=== PATIENT | male | born 1945 | race Caucasian/White ===

== ENCOUNTER 2018-10-10 14:55 | Emergency (ER) | payer MEDICARE, BC ==
--- NOTE | 2018-10-10 15:32 | EDM.PDOC ---
ED HPI GENERAL MEDICAL PROBLEM - General Chief Complaint: General Stated Complaint: Bilateral Leg Weakness, R Arm Shaking Time Seen by Provider: 10/10/18 15:08 Source of Information: Reports: Patient, Other ([place] [facility] staff) History Limitations: Reports: Other (mild cognitive impairment) - History of Present Illness INITIAL COMMENTS - FREE TEXT/NARRATIVE: Patient sent to ER for evaluation after [facility] staff noted that he has appeared to show on and off signs of gait change...more specifically right leg heaviness sensation/lagging. Also right arm/hand shaking. Staff say they noted it earlier this morning and again later at 1350. Patient says that he has had the issues for at least several weeks and denies acute changes. Staff also note that patient told them that he was not thinking as clearly today compared to yesterday. Patient denies this problem here in the ER. He admits that he has to be careful whenever he starts to ambulate and it takes a bit to get going and he has to be careful or will lose balance. Denies new numbness/tingling/focal weakness sensation when asked in the ER. No reported med changes or other recent health changes. No changes in speech/vision. - Related Data Allergies Allergy/AdvReac Type Severity Reaction Status Date / Time ibuprofen Allergy Other Verified 10/26/14 03:28 simvastatin Allergy Other Verified 08/30/16 12:23 [id number] Reductase Allergy Other Verified 10/26/14 03:27 Inhibitor nitroglycerin AdvReac Bradycardia Verified 10/26/14 11:29 [From Nitrostat] Home Meds: Home Meds Acetaminophen 650 mg PO Q4HR PRN MDD 3000 mg 10/26/14 [History] Aspirin [Ecotrin] 325 mg PO DAILY 10/26/14 [History] Cholecalciferol (Vitamin D3) [Vitamin D3] 2,000 units PO DAILY 10/26/14 [History ] Levothyroxine 50 mcg PO DAILY 10/26/14 [History] Donepezil [Aricept] 5 mg PO DAILY 08/30/16 [History] Loratadine 10 mg PO DAILY 08/30/16 [History] Metoprolol Succinate [Toprol XL] 50 mg PO DAILY #30 tab.er 08/30/16 [Rx] Phenylephrine HCl [Sudogest PE] 10 mg PO Q4HR PRN MDD 6 tabs 08/30/16 [History] Sennosides/Docusate Sodium [Sennosides-Docusate Sodium] 2 tab PO DAILY 08/30/16 [History] Dextran 70/Hypromellose [Artificial Tears] 1 drop EYEBOTH BID PRN 10/10/18 [ History] Docusate Sodium [Colace] 100 - 200 mg PO DAILY 10/10/18 [History] Melatonin 3 mg PO DAILY PRN 10/10/18 [History] Menthol/Methyl Salicylate [Analgesic [place]] 1 applic TOP TID PRN 10/10/18 [ History] Past Medical History HEENT History: Reports: Allergic Rhinitis, Hard of Hearing, Impaired Vision, Sinusitis, Other (See Below) Other HEENT History: Chronic allergic rhinitis and sinusitis, severe bilateral presbycusis with the patient not wearing hearing aids, glasses, chronic tinnitus , eustachian tube dysfunction, dry eye syndrome Cardiovascular History: Reports: High Cholesterol, PVD, Other (See Below) Other Cardiovascular History: Varicose veins Respiratory History: Reports: None Gastrointestinal History: Reports: Chronic Constipation Genitourinary History: Reports: BPH Musculoskeletal History: Reports: Arthritis, Osteoarthritis Neurological History: Reports: Alzheimers Disease Psychiatric History: Reports: Alzheimers Disease, Dementia, Other (See Below) Other Psychiatric History: insomnia Endocrine/Metabolic History: Reports: Hypothyroidism, Vitamin D Deficiency Dermatologic History: Reports: Other (See Below) Other Dermatologic History: Actinic keratosis Social & Family History - Living Situation & Occupation Living situation: Reports: Extended Care Facility ED ROS GENERAL - Review of Systems Review Of Systems: See Below Constitutional: Reports: No Symptoms HEENT: Reports: No Symptoms Respiratory: Reports: No Symptoms Endocrine: Reports: No Symptoms GI/Abdominal: Reports: No Symptoms : Reports: No Symptoms Musculoskeletal: Reports: Other (right hand shaking, right leg heaviness/lag per HPI) Skin: Reports: No Symptoms Neurological: Reports: Confusion (has dementia, denies any acute worsening of mentation when asked. ), Tremors. Denies: Dizziness, Headache, Numbness, Paresthesia, Trouble Speaking, Weakness, Change in Speech Psychiatric: Reports: No Symptoms Hematologic/Lymphatic: Reports: No Symptoms ED EXAM, GENERAL - Physical Exam Exam: See Below Exam Limited By: No Limitations General Appearance: Alert, WD/WN, No Apparent Distress Eye Exam: Bilateral Eye: EOMI, PERRL Ears: Normal External Exam Nose: No: Nasal Deformity, Nasal Swelling, Nasal Drainage Throat/Mouth: Normal Lips, Normal Voice, No Airway Compromise Head: Atraumatic, Normocephalic Neck: Normal Inspection, Supple, Non-Tender, Full Range of Motion Respiratory/Chest: No Respiratory Distress, Lungs Clear, Normal Breath Sounds, No Accessory Muscle Use, Chest Non-Tender Cardiovascular: Normal Peripheral Pulses, Regular Rate, Rhythm, No Murmur GI/Abdominal: Soft, Non-Tender (Male) Exam: Deferred Rectal (Males) Exam: Deferred Back Exam: Normal Inspection Extremities: Non-Tender, No Pedal Edema, Normal Capillary Refill. No: Juancarlos's Sign, Leg Pain Neurological: Alert, No Motor/Sensory Deficits, Other (Equal tone/strength bilaterally. Normal reflexes. No cogwheeling noted. Slight shuffle noted when patient stood and started to ambulate. Once ambulating he appeared to do well. No tremor noted in limbs. ) Psychiatric: Normal Affect, Normal Mood Skin Exam: Warm, Dry, Intact Course - Vital Signs Last Recorded V/S: Last Vital Signs Temp 36.4 C 10/10/18 15:00 Pulse 67 10/10/18 15:00 Resp 16 10/10/18 15:00 BP 155/90 H 10/10/18 15:00 Pulse Ox 97 10/10/18 15:00 - Orders/Labs/Meds Orders: Active Orders 24 hr Category Date Time Status Head wo Cont [CT] Stat Exams 10/10/18 15:13 Ordered UA W/MICROSCOPIC [URIN] Stat Lab 10/10/18 15:08 Stop Req Labs: Laboratory Tests 10/10/18 10/10/18 Range/Units 15:16 15:16 WBC 6.3 (4.0-10.2) K/uL RBC 4.60 (4.33-5.41) M/uL Hgb 15.1 (13.1-16.8) g/dL Hct 42.7 (39.0-49.0) % MCV 92.8 (84.0-98.0) fL MCH 32.8 (28.2-33.3) pg MCHC 35.4 (31.7-36.0) g/dL RDW 12.3 (11.2-14.1) % Plt Count 200 (150-350) K/uL Neut % (Auto) 71.6 (45.0-80.0) % Lymph % (Auto) 15.3 (10.0-50.0) % [place] % (Auto) 10.7 (2.0-14.0) % Eos % (Auto) 1.9 (0.0-5.0) % Baso % (Auto) 0.5 (0.0-2.0) % Neut # (Auto) 4.50 (1.40-7.00) K/uL Lymph # (Auto) 0.96 (0.50-3.50) K/uL [place] # (Auto) 0.67 (0.00-1.00) K/uL Eos # (Auto) 0.12 (0.00-0.50) K/uL Baso # (Auto) 0.03 (0.00-0.20) K/uL Sodium 138 (136-145) mmol/L Potassium 4.0 (3.5-5.1) mmol/L Chloride 100 (98-107) mmol/L Carbon Dioxide 28.3 (21.0-32.0) mmol/L BUN 12 (7-18) mg/dL Creatinine 0.78 (0.51-1.17) mg/dL Est Cr Clr Drug Dosing 77.68 mL/min Estimated GFR (MDRD) > 60 mL/min Glucose 124 H (74-106) mg/dL Calcium 8.8 (8.5-10.1) mg/dL Magnesium 1.8 (1.8-2.4) mg/dL Total Bilirubin 0.5 (0.2-1.0) mg/dL AST 16 (15-37) U/L ALT 28 (12-78) U/L Alkaline Phosphatase 72 (46-116) IU/L Total Protein 6.5 (6.4-8.2) g/dL Albumin 3.8 (3.4-5.0) g/dL TSH, Ultra Sensitive 1.430 (0.358-3.740) mIU/mL - Radiology Interpretation CT Results Date: 10/10/18 CT Results Time: 16:00 (No acute changes noted on head CT suggestive of acute ischemia/bleed/mass) - Re-Assessments/Exams Free Text/Narrative Re-Assessment/Exam: 10/10/18 15:[address] ordered. Patient however did not meet criteria for stroke code given prolonged nature of complaint and lack of focal changes noted on initial exam in ER. Baseline labs ordered. 10/10/18 16:[address] of head unremarkable for acute changes. Has some volume loss and changes reflective of chronic small vessel ischemic disease. Patient comfortable in ER during visit. No complaints. No changes observed during stay. Plan is to discharge patient back to [place] home. UA canceled as patient unable to provide specimen. Denies UTI complaints. Given the intermittent tremors reported, more pronounced on the one side, as well as difficulty "getting going" while ambulating, consider developing movement disorder such as Parkinson's. To follow up with primary provider for re-evaluation. Further testing can be scheduled at that time as needed. Departure - Departure Time of Disposition: 16:10 Disposition: DC/Tfer to SNF 03 Condition: Good Clinical Impression: Occasional tremors - Discharge Information *PRESCRIPTION DRUG MONITORING PROGRAM REVIEWED*: Not Applicable *COPY OF PRESCRIPTION DRUG MONITORING REPORT IN PATIENT GAGAN: Not Applicable Referrals: Josephine Alan PA [Primary Care Provider] - Forms: ED Department Discharge Additional Instructions: Continue current plan. Follow up with clinic. May need neuro evaluation for possible movement disorder such as Parkinsons. Observe for changes and follow up otherwise as needed if new issues arise. - My Orders Last 24 Hours: My Active Orders 10/10/18 15:08 UA W/MICROSCOPIC [URIN] Stat 10/10/18 15:13 Head wo Cont [CT] Stat - Assessment/Plan Last 24 Hours: My Active Orders 10/10/18 15:08 UA W/MICROSCOPIC [URIN] Stat 10/10/18 15:13 Head wo Cont [CT] Stat
[2018-10-10 15:51] LABS: CHLORIDE,CL 100 mmol/L (98-107); SODIUM,NA 138 mmol/L (136-145)
[2018-10-10 16:34] VITALS: BP 138/86
== END 2018-10-10 16:20 ==
LOC: LL.ED 14:55
DX: R25.1 Tremor, unspecified (principal); E78.00 Pure hypercholesterolemia, unspecified; E03.9 Hypothyroidism, unspecified; Z79.82 Long term (current) use of aspirin; Z88.8 Allergy status to other drugs, medicaments and biological substances; Z79.899 Other long term (current) drug therapy
CPT/HCPCS: 36415; 70450; 80053; 83735; 84443; 85025; 99283; 99285

== ENCOUNTER 2018-12-13 10:20 | Emergency (ER) | payer MEDICARE, BC ==
[2018-12-13] MEDS ORDERED: Sodium Chloride 0.9% 10 ML Syringe FLUSH PRN (10:29)
[2018-12-13 10:54] LABS: CHLORIDE,CL 103 mmol/L (98-107); SODIUM,NA 141 mmol/L (136-145)
--- NOTE | 2018-12-13 11:13 | EDM.PDOC ---
ED HPI GENERAL MEDICAL PROBLEM - General Chief Complaint: Cardiovascular Problem Stated Complaint: chest pain Time Seen by Provider: 12/13/18 10:25 Source of Information: Reports: Patient History Limitations: Reports: No Limitations - History of Present Illness INITIAL COMMENTS - FREE TEXT/NARRATIVE: Pt states he had substernal chest pain this morning Began about an hour before presenting to ER No fever No cough No trauma Pain does not radiate Was not related to eating etc Has had similar pain in the past No nrew medications Pain was 5/10 at worst Has resolved at this time Onset: Today, Gradual Duration: Hour(s):, Improving Location: Reports: Chest Quality: Reports: Ache Severity: Moderate Improves with: Reports: None Worsens with: Reports: None Associated Symptoms: Reports: No Other Symptoms Sternum Pain Score (Numeric/FACES): 0 - Related Data Allergies Allergy/AdvReac Type Severity Reaction Status Date / Time ibuprofen Allergy Other Verified 12/13/18 10:47 simvastatin Allergy Other Verified 12/13/18 10:47 [id number] Reductase Allergy Other Verified 12/13/18 10:47 Inhibitor nitroglycerin AdvReac Bradycardia Verified 12/13/18 10:47 [From Nitrostat] Home Meds: Home Meds Aspirin [Ecotrin] 325 mg PO DAILY 10/26/14 [History] Cholecalciferol (Vitamin D3) [Vitamin D3] 2,000 units PO DAILY 10/26/14 [History ] Levothyroxine 50 mcg PO DAILY 10/26/14 [History] Donepezil [Aricept] 5 mg PO DAILY 08/30/16 [History] Loratadine 10 mg PO DAILY 08/30/16 [History] Metoprolol Succinate [Toprol XL] 50 mg PO DAILY #30 tab.er 08/30/16 [Rx] Phenylephrine HCl [Sudogest PE] 10 mg PO Q4HR PRN MDD 6 tabs 08/30/16 [History] Sennosides/Docusate Sodium [Sennosides-Docusate Sodium] 2 tab PO DAILY 08/30/16 [History] Dextran 70/Hypromellose [Artificial Tears] 1 drop EYEBOTH BID PRN 10/10/18 [ History] Docusate Sodium [Colace] 1 - 2 cap PO DAILY 10/10/18 [History] Melatonin 3 mg PO DAILY PRN 10/10/18 [History] Menthol/Methyl Salicylate [Analgesic [place]] 1 applic TOP TID PRN 10/10/18 [ History] Past Medical History HEENT History: Reports: Allergic Rhinitis, Hard of Hearing, Impaired Vision, Sinusitis, Other (See Below) Other HEENT History: Chronic allergic rhinitis and sinusitis, severe bilateral presbycusis with the patient not wearing hearing aids, glasses, chronic tinnitus , eustachian tube dysfunction, dry eye syndrome Cardiovascular History: Reports: High Cholesterol, PVD, Other (See Below) Other Cardiovascular History: Varicose veins Respiratory History: Reports: None Gastrointestinal History: Reports: Chronic Constipation Genitourinary History: Reports: BPH Musculoskeletal History: Reports: Arthritis, Osteoarthritis Neurological History: Reports: Alzheimers Disease Psychiatric History: Reports: Alzheimers Disease, Dementia, Other (See Below) Other Psychiatric History: insomnia Endocrine/Metabolic History: Reports: Hypothyroidism, Vitamin D Deficiency Dermatologic History: Reports: Other (See Below) Other Dermatologic History: Actinic keratosis Social & Family History - Caffeine Use Caffeine Use: Reports: Coffee, Soda, Tea - Living Situation & Occupation Living situation: Reports: Extended Care Facility ED ROS GENERAL - Review of Systems Review Of Systems: See Below Constitutional: Reports: No Symptoms HEENT: Reports: No Symptoms Respiratory: Reports: No Symptoms Cardiovascular: Reports: Chest Pain GI/Abdominal: Reports: No Symptoms : Reports: No Symptoms Musculoskeletal: Reports: No Symptoms ED EXAM, GENERAL - Physical Exam Exam: See Below Exam Limited By: No Limitations General Appearance: No Apparent Distress Throat/Mouth: Normal Oropharynx Neck: Supple Respiratory/Chest: Lungs Clear Cardiovascular: Regular Rate, Rhythm GI/Abdominal: Soft, Non-Tender Extremities: Normal Inspection Course - Vital Signs Last Recorded V/S: Last Vital Signs Temp 36.8 C 12/13/18 10:22 Pulse 57 L 12/13/18 10:40 Resp 17 12/13/18 10:40 BP 140/90 12/13/18 10:40 Pulse Ox 96 12/13/18 10:40 - Orders/Labs/Meds Orders: Active Orders 24 hr Category Date Time Status EKG Documentation Completion [RC] ASDIRECTED Care 12/13/18 10:28 Active Chest 1V Frontal [CR] Stat Exams 12/13/18 10:29 Taken Sodium Chloride 0.9% [Saline Flush] Med 12/13/18 10:29 Active 10 ml FLUSH ASDIRECTED PRN Saline Lock Insert [OM.PC] Routine Oth 12/13/18 10:29 Ordered Medication Orders Sodium Chloride (Saline Flush) 10 ml FLUSH ASDIRECTED PRN PRN Reason: Keep Vein Open Labs: Laboratory Tests 12/13/18 12/13/18 Range/Units 10:30 10:30 WBC 5.8 (4.0-10.2) K/uL RBC 4.74 (4.33-5.41) M/uL Hgb 15.6 (13.1-16.8) g/dL Hct 44.3 (39.0-49.0) % MCV 93.5 (84.0-98.0) fL MCH 32.9 (28.2-33.3) pg MCHC 35.2 (31.7-36.0) g/dL RDW 12.4 (11.2-14.1) % Plt Count 200 (150-350) K/uL Neut % (Auto) 66.9 (45.0-80.0) % Lymph % (Auto) 18.2 (10.0-50.0) % [place] % (Auto) 12.9 (2.0-14.0) % Eos % (Auto) 1.7 (0.0-5.0) % Baso % (Auto) 0.3 (0.0-2.0) % Neut # (Auto) 3.89 (1.40-7.00) K/uL Lymph # (Auto) 1.06 (0.50-3.50) K/uL [place] # (Auto) 0.75 (0.00-1.00) K/uL Eos # (Auto) 0.10 (0.00-0.50) K/uL Baso # (Auto) 0.02 (0.00-0.20) K/uL Sodium 141 (136-145) mmol/L Potassium 4.1 (3.5-5.1) mmol/L Chloride 103 (98-107) mmol/L Carbon Dioxide 27.4 (21.0-32.0) mmol/L BUN 14 (7-18) mg/dL Creatinine 0.81 (0.51-1.17) mg/dL Est Cr Clr Drug Dosing 74.80 mL/min Estimated GFR (MDRD) > 60 mL/min Glucose 106 (74-106) mg/dL Calcium 9.2 (8.5-10.1) mg/dL Total Bilirubin 0.6 (0.2-1.0) mg/dL AST 21 (15-37) U/L ALT 30 (12-78) U/L Alkaline Phosphatase 75 (46-116) IU/L Troponin I 0.000 (0.000-0.056) ng/mL Total Protein 6.7 (6.4-8.2) g/dL Albumin 3.8 (3.4-5.0) g/dL Meds: Medications Generic Name Dose Route Start Last Admin Trade Name Freq PRN Reason Stop Dose Admin Sodium Chloride 10 ml 12/13/18 10:29 Saline Flush FLUSH ASDIRECTED PRN Keep Vein Open - Re-Assessments/Exams Free Text/Narrative Re-Assessment/Exam: 12/13/18 11:12 Pt stable in ER Pt remains pain free Lab, CXR and EKG without acute changes Departure - Departure Time of Disposition: 11:30 Disposition: DC/Tfer to [place] [id number] Reason for Transfer *Q: Other Clinical Impression: Atypical chest pain Instructions: Nonspecific Chest Pain Referrals: Lindsay Chadwick MD [Primary Care Provider] - - My Orders Last 24 Hours: My Active Orders 12/13/18 10:28 EKG Documentation Completion [RC] ASDIRECTED 12/13/18 10:29 Chest 1V Frontal [CR] Stat Sodium Chloride 0.9% [Saline Flush] 10 ml FLUSH ASDIRECTED PRN Saline Lock Insert [OM.PC] Routine - Assessment/Plan Last 24 Hours: My Active Orders 12/13/18 10:28 EKG Documentation Completion [RC] ASDIRECTED 12/13/18 10:29 Chest 1V Frontal [CR] Stat Sodium Chloride 0.9% [Saline Flush] 10 ml FLUSH ASDIRECTED PRN Saline Lock Insert [OM.PC] Routine
[2018-12-13 12:10] VITALS: BP 122/77
== END 2018-12-13 12:10 ==
LOC: LL.ED 10:20
DX: R07.2 Precordial pain (principal); Z88.8 Allergy status to other drugs, medicaments and biological substances; Z79.899 Other long term (current) drug therapy; Z79.82 Long term (current) use of aspirin
CPT/HCPCS: 36000; 36415; 71045; 80053; 84484; 85025; 93005; 99285-25

== ENCOUNTER 2019-01-27 00:08 | Emergency (ER) | payer MEDICARE, BC ==
[2019-01-27 00:54] LABS: CHLORIDE,CL 99 mmol/L (98-107); SODIUM,NA 136 mmol/L (136-145)
[2019-01-27] MEDS: Ondansetron 4 MG Tab.DIS PO ONE ×2 (00:55→02:23)
[2019-01-27] MEDS: traMADol 50 MG Tab PO ONE ×2 (00:55→02:23)
[2019-01-27] MEDS: Magnesium Citrate Solution 296 ML Bottle PO ONE ×2 (00:58→02:23)
--- NOTE | 2019-01-27 00:58 | EDM.PDOC ---
ED HPI GENERAL MEDICAL PROBLEM - General Chief Complaint: Abdominal Pain Stated Complaint: Abdominal pain Time Seen by Provider: 01/27/19 00:30 Source of Information: Reports: Patient History Limitations: Reports: Other (has cognitive impairment) - History of Present Illness INITIAL COMMENTS - FREE TEXT/NARRATIVE: Patient sent to ER from [place] home after complaining of abdominal pain that started around 7:30-8pm tonight. Patient describes the pain as "jumping around ". Was in RUQ earlier when first arrived. Also has discomfort on left side/ periumbilically. Reports having two normal bowel movements on Tuesday. Had history of constipation. Denies nausea/emesis. Ate and drank throughout day without issue. No fevers or chills. Denies urinary changes. No other acute health changes per patient. Nothing else reported from [facility] staff. Pain appears to have been generally persistent for about 5 hours, waxing and waning. Middle Abdomen Pain Score (Numeric/FACES): 5 - Related Data Allergies Allergy/AdvReac Type Severity Reaction Status Date / Time ibuprofen Allergy Other Verified 01/27/19 00:09 simvastatin Allergy Other Verified 01/27/19 00:09 [id number] Reductase Allergy Other Verified 01/27/19 00:09 Inhibitor nitroglycerin AdvReac Bradycardia Verified 01/27/19 00:09 [From Nitrostat] Home Meds: Home Meds Aspirin [Ecotrin] 325 mg PO DAILY 10/26/14 [History] Cholecalciferol (Vitamin D3) [Vitamin D3] 2,000 units PO DAILY 10/26/14 [History ] Levothyroxine 50 mcg PO DAILY 10/26/14 [History] Donepezil [Aricept] 5 mg PO DAILY 08/30/16 [History] Loratadine 10 mg PO DAILY 08/30/16 [History] Metoprolol Succinate [Toprol XL] 50 mg PO DAILY #30 tab.er 08/30/16 [Rx] Phenylephrine HCl [Sudogest PE] 10 mg PO Q4HR PRN MDD 6 tabs 08/30/16 [History] Sennosides/Docusate Sodium [Sennosides-Docusate Sodium] 2 tab PO DAILY 08/30/16 [History] Dextran 70/Hypromellose [Artificial Tears] 1 drop EYEBOTH BID PRN 10/10/18 [ History] Docusate Sodium [Colace] 1 - 2 cap PO DAILY 10/10/18 [History] Melatonin 3 mg PO DAILY PRN 10/10/18 [History] Menthol/Methyl Salicylate [Analgesic [place]] 1 applic TOP TID PRN 10/10/18 [ History] Acetaminophen 650 mg PO Q4H PRN 01/27/19 [History] Alum Hydrox/Mag Hydrox/Simeth [Mag-Al Plus] 15 - 20 ml PO ASDIRECTED 01/27/19 [ History] Magnesium Hydroxide [Milk of Magnesia] 30 ml PO DAILY PRN 01/27/19 [History] Past Medical History HEENT History: Reports: Allergic Rhinitis, Hard of Hearing, Impaired Vision, Sinusitis, Other (See Below) Other HEENT History: Chronic allergic rhinitis and sinusitis, severe bilateral presbycusis with the patient not wearing hearing aids, glasses, chronic tinnitus , eustachian tube dysfunction, dry eye syndrome Cardiovascular History: Reports: High Cholesterol, PVD, Other (See Below) Other Cardiovascular History: Varicose veins Respiratory History: Reports: None Gastrointestinal History: Reports: Chronic Constipation Genitourinary History: Reports: BPH Musculoskeletal History: Reports: Arthritis, Osteoarthritis Neurological History: Reports: Alzheimers Disease Psychiatric History: Reports: Alzheimers Disease, Dementia, Other (See Below) Other Psychiatric History: insomnia Endocrine/Metabolic History: Reports: Hypothyroidism, Vitamin D Deficiency Dermatologic History: Reports: Other (See Below) Other Dermatologic History: Actinic keratosis Social & Family History - Tobacco Use Smoking Status *Q: Never Smoker - Caffeine Use Caffeine Use: Reports: Coffee, Soda, Tea - Recreational Drug Use Recreational Drug Use: No - Living Situation & Occupation Living situation: Reports: Extended Care Facility [facility] - Review of Systems Review Of Systems: See Below Constitutional: Denies: Fever, Chills, Malaise, Weakness, Diaphoresis, Decreased Appetite HEENT: Reports: No Symptoms, Glasses Respiratory: Reports: No Symptoms Cardiovascular: Reports: No Symptoms. Denies: Chest Pain GI/Abdominal: Reports: Abdominal Pain. Denies: Black Stool, Bloody Stool, Diarrhea, Decreased Appetite, Difficulty Swallowing, Hematemesis, Hematochezia, Nausea, Stool Incontinence, Vomiting : Reports: No Symptoms Musculoskeletal: Reports: No Symptoms Skin: Reports: No Symptoms Neurological: Reports: Other (no acute changes). Denies: Headache Psychiatric: Reports: No Symptoms ED EXAM, GI/ABD - Physical Exam Exam: See Below Exam Limited By: No Limitations General Appearance: Alert, WD/WN, No Apparent Distress, Other (Interactive, moves well, ambulates well, can change position on bed without issue. ) Eyes: Bilateral: EOMI Nose: No: Nasal Deformity, Nasal Swelling, Nasal Drainage Throat/Mouth: Normal Lips, Normal Voice, No Airway Compromise Head: Atraumatic, Normocephalic Neck: Supple, Non-Tender Respiratory/Chest: No Respiratory Distress, Lungs Clear, Normal Breath Sounds, No Accessory Muscle Use, Chest Non-Tender Cardiovascular: Regular Rate, Rhythm, No Murmur GI/Abdominal Exam: Soft, Tender (general abdominal tenderness RUQ, LUQ, LLL, periumbilically.), Other (bowel sounds active). No: Guarding, Rebound (Male) Exam: Deferred Rectal (Males) Exam: Deferred Back Exam: Normal Inspection. No: CVA Tenderness (L), CVA Tenderness (R), Muscle Spasm, Paraspinal Tenderness, Vertebral Tenderness Extremities: Normal Inspection, Normal Capillary Refill Neurological: Alert, Normal Gait, No Motor/Sensory Deficits Psychiatric: Normal Affect, Normal Mood Skin Exam: Warm, Dry, Intact, Normal Color Course - Vital Signs Last Recorded V/S: Last Vital Signs Temp 36.8 C 01/27/19 00:08 Pulse 58 L 01/27/19 05:00 Resp 15 01/27/19 05:00 BP 118/68 01/27/19 05:00 Pulse Ox 95 01/27/19 05:00 - Orders/Labs/Meds Orders: Active Orders 24 hr Category Date Time Status Abdomen 2V AP Flat Upright [CR] Stat Exams 01/27/19 00:22 Taken CTA Abd Pelv w Cont [CT] Stat Exams 01/27/19 01:09 Taken Saline Lock Insert [OM.PC] Routine Oth 01/27/19 01:09 Ordered Labs: Laboratory Tests 01/27/19 01/27/19 01/27/19 Range/Units 00:25 00:25 00:25 WBC 9.8 (4.0-10.2) K/uL RBC 4.82 (4.33-5.41) M/uL Hgb 15.8 (13.1-16.8) g/dL Hct 44.4 (39.0-49.0) % MCV 92.1 (84.0-98.0) fL MCH 32.8 (28.2-33.3) pg MCHC 35.6 (31.7-36.0) g/dL RDW 12.1 (11.2-14.1) % Plt Count 199 (150-350) K/uL Neut % (Auto) 74.8 (45.0-80.0) % Lymph % (Auto) 12.9 (10.0-50.0) % [place] % (Auto) 10.4 (2.0-14.0) % Eos % (Auto) 1.6 (0.0-5.0) % Baso % (Auto) 0.3 (0.0-2.0) % Neut # (Auto) 7.34 H (1.40-7.00) K/uL Lymph # (Auto) 1.27 (0.50-3.50) K/uL [place] # (Auto) 1.02 H (0.00-1.00) K/uL Eos # (Auto) 0.16 (0.00-0.50) K/uL Baso # (Auto) 0.03 (0.00-0.20) K/uL Sodium 136 (136-145) mmol/L Potassium 3.8 (3.5-5.1) mmol/L Chloride 99 (98-107) mmol/L Carbon Dioxide 27.8 (21.0-32.0) mmol/L BUN 16 (7-18) mg/dL Creatinine 0.81 (0.51-1.17) mg/dL Est Cr Clr Drug Dosing 77.00 mL/min Estimated GFR (MDRD) > 60 mL/min Glucose 106 (74-106) mg/dL Calcium 9.1 (8.5-10.1) mg/dL Total Bilirubin 0.5 (0.2-1.0) mg/dL AST 24 (15-37) U/L ALT 36 (12-78) U/L Alkaline Phosphatase 79 (46-116) IU/L Total Protein 6.7 (6.4-8.2) g/dL Albumin 3.8 (3.4-5.0) g/dL Amylase 75 (25-115) U/L Lipase 189 (73-393) U/L Meds: Medications Discontinued Medications Generic Name Dose Route Start Last Admin Trade Name Freq PRN Reason Stop Dose Admin Sodium Chloride 500 mls @ 125 mls/hr 01/27/19 01:15 01/27/19 01:32 Normal Saline IV 125 mls/hr ASDIRECTED QIANA Administration Sodium Chloride 1,000 mls @ 250 mls/hr 01/27/19 03:20 01/27/19 04:40 Normal Saline IV 01/27/19 07:19 250 mls/hr .BOLUS ONE Administration Iopamidol 100 ml 01/27/19 01:35 01/27/19 02:00 Isovue-370 (76%) IVPUSH 01/27/19 01:36 100 ml ONETIME ONE Administration Magnesium Citrate 296 ml 01/27/19 00:52 01/27/19 02:23 Citrate Of Magnesia PO 01/27/19 00:53 Not Given ONETIME ONE Morphine Sulfate 2 mg 01/27/19 01:18 01/27/19 01:23 Morphine IVPUSH 01/27/19 01:19 2 mg ONETIME ONE Administration Morphine Sulfate 2 mg 01/27/19 04:13 01/27/19 04:45 Morphine IVPUSH 01/27/19 04:14 2 mg ONETIME ONE Administration Ondansetron HCl 4 mg 01/27/19 00:51 01/27/19 02:23 Zofran Odt PO 01/27/19 00:52 Not Given ONETIME ONE Ondansetron HCl 4 mg 01/27/19 01:19 01/27/19 01:23 Zofran IVPUSH 01/27/19 01:20 4 mg ONETIME ONE Administration Sodium Chloride 10 ml 01/27/19 01:09 01/27/19 01:23 Saline Flush FLUSH 10 ml ASDIRECTED PRN Administration Keep Vein Open Tramadol HCl 50 mg 01/27/19 00:51 01/27/19 02:23 Ultram PO 01/27/19 00:52 Not Given ONETIME ONE - Radiology Interpretation Free Text/Narrative:: Abdominal xray shows increased stool burden across abdomen, plus a few areas of increased air in small bowel. - Re-Assessments/Exams Free Text/Narrative Re-Assessment/Exam: 01/27/19 01:20 Patient looked overall pretty well/moved well. Normal WBC. MagCitrate was being considered for treatment of constipation when patient suddenly became less responsive. BP went to 80s/ 50s. Patient pale/clammy. However did not fully lose consciousness, remaining arousable to voice. This lasted several minutes then BP improved. It was noted that patient did not return to previous level of interaction and demeanor remained subdued. Continued to have diffuse pain across abdomen, now with mild guarding. IV access obtained. Scan of abdomen and pelvis requested to rule out AAA. Small amount of MS given with caution (due to BP concerns) to help improve level of comfort. 01/27/19 03:17 Radiology called 2:58am with reading and felt that patient has bowel obstruction. Call then placed to [facility] in [place] regarding admission. Discussed patient with Dr. Alston. She wished to speak with Surgery to see if they felt comfortable with patient being sent to their facility. Patient sleeping at this time. More comfortable since receiving MS. BPs stable, but remaining in lower ranges then when patient first evaluated. Free Text/Narrative Re-Assessment/Exam: 01/27/19 04:08 [place] accepted the patient for transfer to their facility at 0400. Waiting for bed assignment. Patient continues to rest in ER. Will give additional small dose MS prior to transfer. BP stable but still lower overall since vaso-vagal episode and first dose of MS. Departure - Departure Time of Disposition: 05:30 Disposition: DC/Tfer to [facility]/[place] [facility] Condition: Fair Clinical Impression: Small bowel obstruction - Discharge Information *PRESCRIPTION DRUG MONITORING PROGRAM REVIEWED*: Not Applicable *COPY OF PRESCRIPTION DRUG MONITORING REPORT IN PATIENT GAGAN: Not Applicable Referrals: Lindsay Chadwick MD [Primary Care Provider] - Forms: ED Department Discharge - My Orders Last 24 Hours: My Active Orders 01/27/19 00:22 Abdomen 2V AP Flat Upright [CR] Stat 01/27/19 01:09 CTA Abd Pelv w Cont [CT] Stat Saline Lock Insert [OM.PC] Routine - Assessment/Plan Last 24 Hours: My Active Orders 01/27/19 00:22 Abdomen 2V AP Flat Upright [CR] Stat 01/27/19 01:09 CTA Abd Pelv w Cont [CT] Stat Saline Lock Insert [OM.PC] Routine
[2019-01-27] MEDS ORDERED: Sodium Chloride 0.9% 10 ML Syringe FLUSH PRN (01:09)
[2019-01-27] MEDS ORDERED: Sodium Chloride 0.9% 500 ML IV SCH (01:15)
[2019-01-27] MEDS ORDERED: Morphine 2 MG/ML Syringe IVPUSH ONE ×2 (01:18→04:13)
[2019-01-27] MEDS ORDERED: Ondansetron 4 MG/2 ML SDV IVPUSH ONE (01:19)
[2019-01-27] MEDS ORDERED: Iopamidol 612 MG/ML 100 ML Bottle IVPUSH ONE (01:30)
[2019-01-27] MEDS ORDERED: Iopamidol 755 Mg/ML 100 ML Bottle IVPUSH ONE (01:35)
[2019-01-27] MEDS ORDERED: Sodium Chloride 0.9% 1,000 ML IV ONE (03:20)
[2019-01-27 05:17] VITALS: BP 118/68
== END 2019-01-27 05:05 ==
LOC: LL.ED 00:08
DX: K56.609 Unspecified intestinal obstruction, unspecified as to partial versus complete obstruction (principal); E03.9 Hypothyroidism, unspecified; E78.00 Pure hypercholesterolemia, unspecified; G30.9 Alzheimer's disease, unspecified; F02.80 Dementia in other diseases classified elsewhere, unspecified severity, without behavioral disturbance, psychotic disturbance, mood disturbance, and anxiety; Z79.82 Long term (current) use of aspirin; Z79.899 Other long term (current) drug therapy; Z88.6 Allergy status to analgesic agent; Z88.8 Allergy status to other drugs, medicaments and biological substances
CPT/HCPCS: 36000; 36415; 74019; 74174; 80053; 82150; 83690; 85025; 96361; 96374; 96375; 96376; 99285; J2270; J2405; J7030; J7040; Q9967; A9270-GY